=== PATIENT | female | born 1975 | race African-American/Black ===

== ENCOUNTER 2018-03-05 10:33 | Emergency (ER) | payer MEDICAID ==
[~2018-03-05] VITALS: Ht 160 cm; Wt 59.0 kg
[2018-03-05 10:33] VITALS: BP 110/78
[~2018-03-05 10:33] MED LIST: NKM; NORCO 5-325 TA1 EACH ORAL; OMEPRAZOLE40 M1 ORAL
[2018-03-05] MEDS ORDERED: NKM (10:40)
--- NOTE | 2018-03-05 11:07 | Emergency Room Report ---
History of Present Illness General Chief Complaint: Eye Problems Source: Patient Present Illness HPI Patient presents with complaints of redness and discharge in the left eye Ongoing for the past one to 2 days Patient feels itching also increased crusting in the morning Denies any pain to the eye she also feels her some swelling involving the periorbital area Denies any change in vision [place] otherwise denies any cough or short of breath denies any runny nose Allergies: Coded Allergies: No Known Allergies (Unverified , 10/11/14) Patient History Past Medical History: see triage record Pertinent Family History: none Last Menstrual Period: 02/10/18 Reviewed Nursing Documentation: PMH: Agreed; PSxH: Agreed Nursing Documentation-PMH Past Medical History: No Stated History Hx Cardiac Problems: No Hx Hypertension: No Hx Pacemaker: No Hx Asthma: No Hx COPD: No Hx Diabetes: No Hx Cancer: No Hx Gastrointestinal Problems: No Hx Dialysis: No History Of Psychiatric Problem: No Hx Neurological Problems: No Hx Cerebrovascular Accident: No Hx Seizures: No Review of Systems All Other Systems: negative except mentioned in HPI Physical Exam Vital Signs Date Time Temp Pulse Resp B/P (MAP) Pulse Ox O2 Delivery O2 Flow Rate FiO2 03/05/18 10:33 98.4 88 18 110/78 95 Room Air 98.4 Sp02 EP Interpretation: reviewed, normal General Appearance: well appearing, no apparent distress Head: normocephalic, atraumatic Eyes: left eye other - Conjunctivitis, discharge, no obvious trauma, no proptosis; bilateral eye PERRL, bilateral eye EOMI ENT: normal pharynx, no angioedema Neck: supple Respiratory: lungs clear Cardiovascular #1: regular rate, rhythm Gastrointestinal: non tender, soft Musculoskeletal: normal inspection Neurologic: alert, oriented x3 Skin: other - Some inflammation around the periorbital area, no obvious erythema no proptosis Lymphatic: no adenopathy Medical Decision Making Diagnostic Impression: Primary Impression: Conjunctivitis ER Course Patient clinical exam appears to be consistent with conjunctivitis, bacterial there is a questionable possibility of early periorbital cellulitis Patient will be placed on oral antibiotics for that as well and requires close follow-up Last Vital Signs Date Time Temp Pulse Resp B/P (MAP) Pulse Ox O2 Delivery O2 Flow Rate FiO2 03/05/18 10:33 98.4 88 18 110/78 95 Room Air 98.4 Status: unchanged Disposition: HOME, SELF-CARE Condition: Stable Referrals: [facility],REFERRING (PCP) Additional Instructions: Patient is provided with the discharge instructions notified to follow up with primary doctor in the next 2-3 days otherwise return to the er with any worsening symptoms. Please note that this report is being documented using [employer] technology. This can lead to erroneous entry secondary to incorrect interpretation by the dictating instrument. Bernard Hughes DO Mar 05, 2018 11:07
[2018-03-05] MEDS ORDERED: AMOXICILLIN500 MG ORAL (11:08)
[2018-03-05] MEDS ORDERED: GENTAK5 ML LEFT EYE (11:08)
[2018-03-05 11:15] VITALS: BP 112/76
== END 2018-03-05 11:16 | disposition home or self-care (01) ==
LOC: EMR 10:45
DX: H10.9 Unspecified conjunctivitis (principal)
CPT/HCPCS: 99282

== ENCOUNTER 2018-09-04 10:43 | Emergency (ER) | payer MEDICAID ==
[~2018-09-04] VITALS: Ht 160 cm; Wt 68.0 kg
[~2018-09-04 10:43] MED LIST changes: +AMOXICILLIN500 MG ORAL; +GENTAK5 ML LEFT EYE
[2018-09-04 11:00] VITALS: BP 121/81
--- NOTE | 2018-09-04 12:14 | Emergency Room Report ---
History of Present Illness General Chief Complaint: Sore Throat Source: Patient Present Illness HPI 42-year-old female comes ER with complaints of subjective fever, sore throat, odynophagia, nonproductive cough, low-grade frontal headache for the past 4 days. Not taking any medications for symptoms. She denies any urinary symptoms , shorts of breath, chest or abdominal pain, skin rashes, ear pain, sinus discharge, any other symptoms. Allergies: Coded Allergies: No Known Allergies (Unverified , 10/11/14) Patient History Past Medical History: see triage record Last Menstrual Period: 09/01/18 Reviewed Nursing Documentation: PMH: Agreed; PSxH: Agreed Nursing Documentation-PMH Past Medical History: No Stated History Hx Cardiac Problems: No Hx Hypertension: No Hx Pacemaker: No Hx Asthma: No Hx COPD: No Hx Diabetes: No Hx Cancer: No Hx Gastrointestinal Problems: No Hx Dialysis: No Hx Neurological Problems: No Hx Cerebrovascular Accident: No Hx Seizures: No Review of Systems All Other Systems: negative except mentioned in HPI Physical Exam Vital Signs Date Time Temp Pulse Resp B/P (MAP) Pulse Ox O2 Delivery O2 Flow Rate FiO2 09/04/18 10:46 98.4 94 17 121/81 99 Room Air Sp02 EP Interpretation: reviewed, normal General Appearance: no apparent distress, alert, non-toxic Head: normocephalic Eyes: bilateral eye normal inspection, bilateral eye PERRL, bilateral eye EOMI ENT: normal ENT inspection, hearing grossly normal, no angioedema, normal voice , uvula midline, moist mucus membranes, tonsillar swelling, pharyngeal erythema Neck: normal inspection, full range of motion, supple, thyroid normal, no meningismus, no bony tend, supple/symm/no masses Respiratory: chest non-tender, lungs clear, normal breath sounds, chest symmetrical, palpation of chest normal Cardiovascular #1: normal peripheral pulses, regular rate, rhythm, no edema Cardiovascular #2: 2+ radial (R), 2+ radial (L) Gastrointestinal: normal inspection, non tender, soft, no mass, no guarding, no rebound Rectal: deferred Genitourinary: normal inspection, no CVA tenderness Musculoskeletal: back normal, gait/station normal, normal range of motion, non- tender, no calf tenderness Neurologic: alert, responsive, journeyman millwright III-XII nml as tested, motor strength/tone normal, sensory intact, speech normal Psychiatric: judgement/insight normal, memory normal, mood/affect normal Skin: normal color, no rash, warm/dry, normal turgor Lymphatic: adenopathy - Bilateral cervical Medical Decision Making Diagnostic Impression: Primary Impression: Strep pharyngitis ER Course Patient with signs and symptoms consistent with strep pharyngitis, will give Toradol, IM penicillin, discharged with PMD follow-up Last Vital Signs Date Time Temp Pulse Resp B/P (MAP) Pulse Ox O2 Delivery O2 Flow Rate FiO2 09/04/18 11:00 98.4 71 17 121/81 99 Room Air Disposition: HOME, SELF-CARE Condition: Stable Referrals: NON PHYSICIAN (PCP) ABDULLAHI ROLAND M.D Sep 04, 2018 12:14
[2018-09-04] MEDS ORDERED: Ketorolac 30mg Inj IM ONE (12:15)
[2018-09-04] MEDS ORDERED: IBUPROFEN600 MG ORAL (12:15)
[2018-09-04] MEDS ORDERED: Bicillin LA 1.2MMU/2ML SYR IM ONE (12:15)
[2018-09-04 13:39] VITALS: BP 122/75
== END 2018-09-04 13:41 | disposition home or self-care (01) ==
LOC: EMR 11:15
DX: J02.0 Streptococcal pharyngitis (principal)
CPT/HCPCS: 96372; 99283; J0561; J1885

== ENCOUNTER 2019-03-07 22:18 | Emergency (ER) | payer MEDICAID ==
[~2019-03-07] VITALS: Ht 162.6 cm; Wt 63.5 kg
[~2019-03-07 22:18] MED LIST changes: +IBUPROFEN600 MG ORAL
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
[2019-03-07] MEDS ORDERED: Acetaminophen 500mg (ES) tab ORAL ONE (23:00)
[2019-03-07] MEDS ORDERED: Methocarbamol 750mg tab ORAL ONE (23:00)
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
--- NOTE | 2019-03-08 00:28 | Diagnostic Imaging Report ---
EXAM: XR Left Knee, 3 Views CLINICAL HISTORY: INJ TECHNIQUE: Three views of the left knee. COMPARISON: No relevant prior studies available. FINDINGS: Bones joints: Unremarkable. No acute fracture. No dislocation. Soft tissues: Unremarkable. IMPRESSION: No evidence for fracture or malalignment left knee
--- NOTE | 2019-03-08 00:39 | NUR ---
ED Nurse Note: Pt sent to x-ray.
[2019-03-08] MEDS ORDERED: ACETAMINOPHEN325 M1 ORAL (01:39)
[2019-03-08] MEDS ORDERED: LIDODERM700 M1 TOPIC (01:39)
[2019-03-08] MEDS ORDERED: ROBAXIN-750750 MG PO (01:39)
[2019-03-08] MEDS ORDERED: IBUPROFEN600 MG ORAL (01:39)
--- NOTE | 2019-03-08 01:40 | Diagnostic Imaging Report ---
EXAM: CT Cervical Spine Without Intravenous Contrast CLINICAL HISTORY: INJ TECHNIQUE: Axial computed tomography images of the cervical spine without intravenous contrast. CTDI is 3.5 mGy and DLP is 106.9 mGy-cm. One or more of the following dose reduction techniques were used: automated exposure control, adjustment of the mA and or kV according to patient size, use of iterative reconstruction technique. COMPARISON: No relevant prior studies available. FINDINGS: Vertebrae: Unremarkable. No acute fracture. Discs spinal canal neural foramina: No acute findings. No spinal canal stenosis. Soft tissues: Unremarkable. IMPRESSION: Mild degenerative changes no evidence for fracture or malalignment of the cervical spine
[2019-03-08 01:55] VITALS: BP 130/80
[2019-03-08 01:57] VITALS: BP 130/80
--- NOTE | 2019-03-08 01:59 | NUR ---
discharged home with instruction and rx follow up with pmd patient verbalize understanding
== END 2019-03-08 02:00 | disposition home or self-care (01) ==
LOC: EMR 22:50
DX: S80.02XA Contusion of left knee, initial encounter (principal); S16.1XXA Strain of muscle, fascia and tendon at neck level, initial encounter; M62.830 Muscle spasm of back; V43.52XA Car driver injured in collision with other type car in traffic accident, initial encounter; Y92.410 Unspecified street and highway as the place of occurrence of the external cause
CPT/HCPCS: 72125; 73562; Z7502; 99284

== ENCOUNTER 2019-03-12 17:13 | Emergency (ER) | payer MEDICAID ==
[~2019-03-12] VITALS: Ht 162.6 cm; Wt 63.5 kg
[~2019-03-12 17:13] MED LIST changes: +ACETAMINOPHEN325 M1 ORAL; +LIDODERM700 M1 TOPIC; +ROBAXIN-750750 MG PO
[2019-03-12 17:29] VITALS: BP 129/77
[2019-03-12] MEDS ORDERED: NKM (17:32)
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
[2019-03-12 18:24] VITALS: BP 135/79
--- NOTE | 2019-03-12 18:24 | NUR ---
ER DISCHARGE NOTE: Patient is cleared to be discharged per ERMD, pt is aox4, on room air, with stable vital signs. pt was given dc instructions, pt was able to verbalize understanding, pt id band removed without complications. pt is able to ambulate with steady gait. pt took all belongings.
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
== END 2019-03-12 18:30 | disposition home or self-care (01) ==
LOC: EMR 18:00
DX: S80.12XD Contusion of left lower leg, subsequent encounter (principal); V99.XXXD Unspecified transport accident, subsequent encounter
CPT/HCPCS: 73590; Z7502; 99283

== ENCOUNTER 2019-05-08 11:48 | Emergency (ER) | payer MEDICAID ==
[~2019-05-08] VITALS: Ht 162.6 cm; Wt 61.2 kg
[2019-05-08] MEDS ORDERED: Metoclopramide 10mg/2ml Inj IVP ONE (12:15)
[2019-05-08] MEDS ORDERED: Ketorolac 30mg Inj IV ONE (12:15)
[2019-05-08 12:32] VITALS: BP 99/64
[2019-05-08 12:46] LABS: BASOPHILS % (AUTO) 1.2 % (0.0-2.0); EOSINOPHILS % (AUTO) 0.1 % (0.0-3.0); HEMATOCRIT 38.6 % (37.0-47.0); LYMPHOCYTES % (AUTO) 36.6 % (20.0-45.0); MEAN CORPUSCULAR VOLUME 80 FL (80-99); MONOCYTES % (AUTO) 9.1 % (1.0-10.0); NEUTROPHILS % (AUTO) 52.9 % (45.0-75.0); PLATELET COUNT 198 K/UL (150-450); RED BLOOD COUNT 4.79 M/UL (4.20-5.40); RED CELL DISTRIBUTION WIDTH 12.1 % (11.6-14.8); WHITE BLOOD COUNT 5.1 K/UL (4.8-10.8)
[2019-05-08 12:50] LABS: APPEARANCE,URINE CLEAR; BILIRUBIN, URINE NEGATIVE (NEGATIVE); GLUCOSE, URINE (UA) NEGATIVE (NEGATIVE); KETONES,URINE 3+ (NEGATIVE); LEUKOCYTE ESTERASE ,URINE 1+ (NEGATIVE); NITRITE,URINE NEGATIVE (NEGATIVE); PH,URINE 5 (4.5-8.0); PROTEIN,URINE 2+ (NEGATIVE); UROBILINOGEN,URINE NORMAL MG/DL (0.0-1.0)
[2019-05-08 13:00] LABS: COLOR,URINE YELLOW
[2019-05-08 13:06] LABS: ANION GAP 11 mmol/L (5-15); BLOOD UREA NITROGEN 9 mg/dL (7-18); CALCIUM 8.4 MG/DL (8.5-10.1); CARBON DIOXIDE 22 MMOL/L (21-32); CHLORIDE 102 MMOL/L (98-107); CREATININE 0.7 MG/DL (0.55-1.30); POTASSIUM 3.6 MMOL/L (3.5-5.1); SODIUM 135 MMOL/L (136-145)
[2019-05-08 13:10] LABS: ALANINE AMINOTRANSFERASE 23 U/L (12-78); ALBUMIN 3.4 G/DL (3.4-5.0); ALBUMIN/GLOBULIN RATIO 0.7 (1.0-2.7); ALKALINE PHOSPHATASE 53 U/L (46-116); ASPARTATE AMINO TRANSFERASE 20 U/L (15-37); BILIRUBIN,TOTAL 0.3 MG/DL (0.2-1.0)
[2019-05-08] MEDS ORDERED: cefTRIAXone 1 GM in NS 55 ML IVPB ONE (13:15)
--- NOTE | 2019-05-08 13:20 | Emergency Room Report ---
History of Present Illness General Chief Complaint: Abdominal Pain Source: Patient Present Illness HPI Patient presents with complaints of right flank pain ongoing for the past several days denies any chest pain or shortness of breath denies any vomiting denies any lower abdominal pain denies any dysuria denies any frequency Patient also complained of a headache fairly diffuse denies any visual changes or posterior neck pain Denies any photophobia Denies any recent travel or trauma Denies any vaginal discharge Denies any focal weakness Allergies: Coded Allergies: No Known Allergies (Unverified , 10/11/14) Patient History Past Medical History: see triage record Last Menstrual Period: 05/03/19 Reviewed Nursing Documentation: PMH: Agreed; PSxH: Agreed Nursing Documentation-PMH Past Medical History: No Stated History Hx Cardiac Problems: No Hx Hypertension: No Hx Pacemaker: No Hx Asthma: No Hx COPD: No Hx Diabetes: No Hx Cancer: No Hx Gastrointestinal Problems: No Hx Dialysis: No Hx Neurological Problems: No Hx Cerebrovascular Accident: No Hx Seizures: No Review of Systems All Other Systems: negative except mentioned in HPI Physical Exam Vital Signs Date Time Temp Pulse Resp B/P (MAP) Pulse Ox O2 Delivery O2 Flow Rate FiO2 05/08/19 11:50 98.1 108 15 105/68 (80) 98 Room Air Sp02 EP Interpretation: reviewed, normal General Appearance: well appearing, no apparent distress Head: normocephalic, atraumatic Eyes: bilateral eye PERRL, bilateral eye EOMI ENT: hearing grossly normal, normal pharynx, TMs + canals normal, uvula midline Neck: full range of motion, supple, no meningismus, no bony tend Respiratory: lungs clear, normal breath sounds, no rhonchi, no respiratory distress, no retraction, no accessory muscle use Cardiovascular #1: normal peripheral pulses, regular rate, rhythm, no edema, no gallop, no JVD, no murmur Gastrointestinal: normal bowel sounds, non tender - Patient however subjectively points to the mid right flank mid abdominal region, soft, no mass, no organomegaly, non-distended, no guarding, no hernia, no pulsatile mass, no rebound Genitourinary: no CVA tenderness Musculoskeletal: normal inspection Neurologic: motor strength/tone normal, medical records coordinator III-XII nml as tested, oriented x3 , sensory intact, responsive Psychiatric: mood/affect normal Skin: no rash Lymphatic: normal inspection, no adenopathy Medical Decision Making Diagnostic Impression: Primary Impression: Pyelonephritis Additional Impression: UTI (urinary tract infection) ER Course With the patient's history and examination, multiple differentials considered, including but not limited to , ectopic , ovarian torsion, gastritis, cholecystitis, pancreatitis, appendicitis Patient's headache appears to be somewhat nonfocal No obvious slurring of speech or change in vision my consideration for central process is low Blood work at this time is appropriate patient's urine sample however does show positive bacteria CT imaging does not show any acute process Given the location of the pain early pyelonephritis needs to be considered patient initiated on antibiotics here and will have close outpatient follow-up Labs Test 05/08/19 12:15 White Blood Count 5.1 K/UL (4.8-10.8) Red Blood Count 4.79 M/UL (4.20-5.40) Hemoglobin 13.0 G/DL (12.0-16.0) Hematocrit 38.6 % (37.0-47.0) Mean Corpuscular Volume 80 FL (80-99) Mean Corpuscular Hemoglobin 27.2 PG (27.0-31.0) Mean Corpuscular Hemoglobin Concent 33.8 G/DL (32.0-36.0) Red Cell Distribution Width 12.1 % (11.6-14.8) Platelet Count 198 K/UL (150-450) Mean Platelet Volume 7.0 FL (6.5-10.1) Neutrophils (%) (Auto) 52.9 % (45.0-75.0) Lymphocytes (%) (Auto) 36.6 % (20.0-45.0) Monocytes (%) (Auto) 9.1 % (1.0-10.0) Eosinophils (%) (Auto) 0.1 % (0.0-3.0) Basophils (%) (Auto) 1.2 % (0.0-2.0) Urine Color Yellow Urine Appearance Clear Urine pH 5 (4.5-8.0) Urine Specific [place] 1.025 (1.005-1.035) Urine Protein 2+ (NEGATIVE) Urine Glucose (UA) Negative (NEGATIVE) Urine Ketones 3+ (NEGATIVE) Urine Blood 4+ (NEGATIVE) Urine Nitrite Negative (NEGATIVE) Urine Bilirubin Negative (NEGATIVE) Urine Urobilinogen Normal MG/DL (0.0-1.0) Urine Leukocyte Esterase 1+ (NEGATIVE) Urine RBC 2-4 /HPF (0 - 2) Urine WBC 5-10 /HPF (0 - 2) Urine Squamous Epithelial Cells Moderate /LPF (NONE/OCC) Urine Bacteria Few /HPF (NONE) Urine HCG, Qualitative Negative (NEGATIVE) Sodium Level 135 MMOL/L (136-145) Potassium Level 3.6 MMOL/L (3.5-5.1) Chloride Level 102 MMOL/L (98-107) Carbon Dioxide Level 22 MMOL/L (21-32) Anion Gap 11 mmol/L (5-15) Blood Urea Nitrogen 9 mg/dL (7-18) Creatinine 0.7 MG/DL (0.55-1.30) Estimat Glomerular Filtration Rate > 60 mL/min (>60) Glucose Level 101 MG/DL (74-106) Calcium Level 8.4 MG/DL (8.5-10.1) Total Bilirubin 0.3 MG/DL (0.2-1.0) Aspartate Amino Transf (AST/SGOT) 20 U/L (15-37) Alanine Aminotransferase (ALT/SGPT) 23 U/L (12-78) Alkaline Phosphatase 53 U/L (46-116) Total Protein 8.3 G/DL (6.4-8.2) Albumin 3.4 G/DL (3.4-5.0) Globulin 4.9 g/dL Albumin/Globulin Ratio 0.7 (1.0-2.7) Lipase 84 U/L (73-393) CT/MRI/US Diagnostic Results CT/MRI/US Diagnostic Results : Impression CT abdomen pelvisMPRESSION: No acute findings Note: Evaluation of solid organs is limited on non contrast imaging. Last Vital Signs Date Time Temp Pulse Resp B/P (MAP) Pulse Ox O2 Delivery O2 Flow Rate FiO2 05/08/19 12:55 98.1 05/08/19 12:32 98 16 99/64 98 Room Air Status: improved Disposition: HOME, SELF-CARE Condition: Improved Scripts Ibuprofen* (MOTRIN*) 600 Mg Tablet 600 MG ORAL Q8H PRN for For Pain, #20 TAB 0 Refills Prov: Bernard uHghes DO 05/08/19 Cephalexin* (KEFLEX*) 500 Mg Capsule 500 MG ORAL EVERY 6 HOURS for 7 Days, CAP Prov: Bernard Hughes DO 05/08/19 Referrals: [facility],REFERRING (PCP) Additional Instructions: Patient is provided with the discharge instructions notified to follow up with primary doctor in the next 2-3 days otherwise return to the er with any worsening symptoms. Please note that this report is being documented using DRAGON technology. This can lead to erroneous entry secondary to incorrect interpretation by the dictating instrument. Bernard Hughes DO May 08, 2019 13:20
--- NOTE | 2019-05-08 14:03 | Diagnostic Imaging Report ---
INDICATION: Abdominal pain TECHNIQUE: Continuous helical transaxial imaging of the abdomen and pelvis was obtained from the lung bases to the pubic symphysis. No intravenous contrast was administered. Coronal 2-D reformats were also obtained. Automatic Exposure Control was utilized. Total Dose length Product (DLP): [address] Dose Index Volume (CTDIvol): 15.2 mGy Comparison: 10/11/2014 CT FINDINGS: Lungs: The visualized lung bases are clear. Liver: Unremarkable Gallbladder/biliary system: No gallstones are identified. There is no evidence of intrahepatic or extrahepatic biliary ductal dilatation. Spleen: Unremarkable Pancreas: Unremarkable Kidneys: No definite stone or hydronephrosis are identified.. Adrenal glands: Unremarkable Bowel: No evidence of bowel obstruction. The appendix is aerated and appears normal. Bladder: The bladder is nondistended. Uterus is noted. The right ovary show some follicles. Aorta/IVC: Unremarkable Peritoneum: There is no free fluid. Bones: Unremarkable IMPRESSION: No acute findings Note: Evaluation of solid organs is limited on non contrast imaging. The CT scanner at [facility] is accredited by the [employer] and the scans are performed using dose optimization techniques as appropriate to a performed exam including Automatic Exposure control.
[2019-05-08] MEDS ORDERED: IBUPROFEN600 MG ORAL (14:05)
[2019-05-08] MEDS ORDERED: CEPHALEXIN500 MG ORAL (14:05)
[2019-05-08 14:12] VITALS: BP 112/68
== END 2019-05-08 14:12 | disposition home or self-care (01) ==
LOC: EMR 12:32
DX: N12 Tubulo-interstitial nephritis, not specified as acute or chronic (principal); N39.0 Urinary tract infection, site not specified
CPT/HCPCS: 36415; 74176; 80053; 81003; 81025; 83690; 85025; 96361; 96365; 96375; J0696; J1885; J2765; J7030; Z7502; 99284